=== PATIENT | male | born 1965 | race African-American/Black ===

== ENCOUNTER 2018-05-28 04:24 | Inpatient (IN) | payer OTHER ==
[2018-05-28] VITALS (7 sets, daily range): BP systolic 112–130; BP diastolic 71–85
[~2018-05-28] VITALS: Ht 190.5 cm; Wt 102.1 kg
[~2018-05-28 04:24] MED LIST: AMLODIPINE; ASPIR 8181 MG PO; BYSTOLIC 5 MG5 M1 PO; CHLORTHALIDONE25 MG PO; CLONIDINE; COZAAR 50 MG TA50 M1 PO; COZAAR 50 MG TA50 M2 PO; HYDROCHLOROTH12.5 M1 PO; LOVAZA1000 MG PO; NORCO 5-325 TA1 EACH PO; OMEPRAZOLE OR; PROAIR HFA8.5 GM INH; SINGULAIR 10 MG10 M1; WELLBUTRIN 75 M75 M1 PO; WELLBUTRIN SR150 MG PO; ZPAK PO
[2018-05-28] MEDS ORDERED: IMDUR 60 MG TAB60 M1 PO (04:38)
[2018-05-28] MEDS ORDERED: COZAAR 25 MG TA25 M1 PO (04:39)
[2018-05-28] MEDS ORDERED: ACCUNEB SO1.25 MG/1 INH (04:39)
[2018-05-28] MEDS ORDERED: CARDIZEM CD240 MG PO (04:39)
[2018-05-28] MEDS ORDERED: NITROGLYCERIN0.4 MG SUBLING (04:40)
[2018-05-28] MEDS ORDERED: PLAVIX 75 MG TA75 M1 PO (04:40)
[2018-05-28] MEDS ORDERED: CATAPRES0.2 MG PO (04:40)
[2018-05-28] MEDS ORDERED: SINGULAIR 10 MG10 M1 PO (04:41)
[2018-05-28] MEDS ORDERED: WELLBUTRIN XL150 MG PO (04:41)
[2018-05-28] MEDS ORDERED: ASPIRIN81 M2 PO (04:41)
[2018-05-28 05:14] LABS: ABSOLUTE EOSINOPHILS 0.1 thou/uL (0.0-0.7); ABSOLUTE LYMPHOCYTES 1.2 thou/uL (0.8-5.3); ABSOLUTE MONOCYTES 0.9 thou/uL (0.0-1.2); ABSOLUTE NEUTROPHILS 7.7 thou/uL (1.6-8.1); BASOPHILS 0.3 %; EOSINOPHILS 1.1 %; HEMATOCRIT 35.9 % (42.0-52.0); HEMOGLOBIN 12.3 gm/dL (14.0-18.0); LYMPHOCYTES 12.3 %; MCH 31.4 pg (26.0-34.0); MCHC 34.2 g/dL (28.0-37.0); MCV 91.9 fL (80.0-100.0); MPV 8.8 fl. (7.2-11.1); NUCLEATED RBCS 0 /100WBC; PLATELET COUNT* 177 thou/uL (150-400); POLYS 77.3 %; RBC 3.91 mil/uL (4.50-6.00); RDW-CV 13.6 % (10.5-14.5); WBC 9.9 thou/uL (4.0-11.0)
[2018-05-28 05:45] LABS: ALBUMIN 3.1 g/dL (3.4-5.0); ALKALINE PHOSPHATASE 83 U/L (46-116); ANION GAP 9 mmol/L (7-16); BUN 17 mg/dL (7-18); CALCIUM 9.1 mg/dL (8.5-10.1); CHLORIDE 101 mmol/L (98-107); CO2 25 mmol/L (21-32); CREATININE 1.5 mg/dL (0.6-1.3); GLUCOSE 130 mg/dL (70-99); NT-PRO BRAIN NAT PEPTIDE 56 pg/mL (<300); POTASSIUM 3.7 mmol/L (3.5-5.1); SGOT 16 U/L (15-37); SGPT 25 U/L (30-65); SODIUM 135 mmol/L (136-145); TOTAL BILIRUBIN 1.1 mg/dL (<0.1-1.0); TOTAL PROTEIN 7.6 g/dL (6.4-8.2); TROPONIN-I LEVEL <0.06 ng/mL (<0.06)
[2018-05-28 06:42] LABS: PROTIME 10.7 Seconds (9.20-11.50)
--- NOTE | 2018-05-28 11:38 | EKG ---
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 STEVENSON : 1965 Requested By: Mckay Cerda Order Number: [id number] MD: Ovidio Mares Measurements Intervals [place] Rate: 85 P: 37 TX: 189 QRS: -5 QRSD: 95 T: -19 QT: 354 QTc: 421 Interpretive Statements Sinus rhythm Delayed R-wave progression Borderline T abnormalities, inferior leads Baseline wander in lead(s) V2 Compared to ECG 10/29/2014 06:40:37 T-wave abnormality still present Electronically Signed On 05-28-2018 11:38:00 CDT by Ovidio Mares [email or web address] <ELECTRONICALLY SIGNED> By: Ovidio Mares MD, FACC 05/28/18 1138 [id number] Ovidio Mares MD, [facility] /EPI
[2018-05-29 04:07] LABS: HEMATOCRIT 32.1 % (42.0-52.0); HEMOGLOBIN 10.8 gm/dL (14.0-18.0); MCH 30.8 pg (26.0-34.0); MCHC 33.5 g/dL (28.0-37.0); MCV 92.1 fL (80.0-100.0); MPV 9.2 fl. (7.2-11.1); RBC 3.49 mil/uL (4.50-6.00); RDW-CV 13.4 % (10.5-14.5); WBC 7.5 thou/uL (4.0-11.0)
[2018-05-29 04:20] LABS: CALCIUM 8.4 mg/dL (8.5-10.1); CREATININE 1.3 mg/dL (0.6-1.3); MAGNESIUM 2.2 mg/dL (1.8-2.4); POTASSIUM 3.9 mmol/L (3.5-5.1)
[2018-05-29 07:45] VITALS: BP 109/66
[2018-05-29] MEDS ORDERED: LOVAZA1000 MG PO (08:07)
[2018-05-29 16:00] VITALS: BP 122/68
[2018-05-30 04:04] LABS: HEMATOCRIT 30.2 % (42.0-52.0); HEMOGLOBIN 10.2 gm/dL (14.0-18.0); MCH 31.3 pg (26.0-34.0); MCHC 33.8 g/dL (28.0-37.0); MCV 92.6 fL (80.0-100.0); MPV 8.4 fl. (7.2-11.1); RBC 3.26 mil/uL (4.50-6.00); RDW-CV 13.4 % (10.5-14.5); WBC 9.3 thou/uL (4.0-11.0)
[2018-05-30 04:11] LABS: CALCIUM 8.7 mg/dL (8.5-10.1); CREATININE 1.3 mg/dL (0.6-1.3); MAGNESIUM 2.4 mg/dL (1.8-2.4); POTASSIUM 4.2 mmol/L (3.5-5.1)
[2018-05-30 08:20] VITALS: BP 123/60
--- NOTE | 2018-05-30 11:04 | CON ---
[address] [address] CONSULTATION Name: WHATLEYISSA Barker Room: [address] IN .R.#: [id number] Admission: 05/28/18 Attend Phys: Kiran Garibay MD Discharge: Date of : 67 Report #: [id number] THIS REPORT FOR: //name// CC: Kiran Vincent DATE OF SERVICE: 05/29/2018 ATTENDING PHYSICIAN: Kiran Garibay MD REASON FOR CONSULTATION: Right lower extremity skin and soft tissue infection with cellulitis. HISTORY OF PRESENT ILLNESS: Chart reviewed, patient examined. This is a 53-year-old man with known history of vasculopathy, has some coronary artery disease, who was unaware of any particular antecedent injury. He developed right lower extremity swelling. It is notably, he has had a previous history of lower extremity deep venous thrombosis; however, this was accompanied by fevers, chills, nausea with emesis and had progressed to the point where it made him difficult to ambulate. As a result, he presented himself to the Emergency Room after evaluation including chest x-ray, which was otherwise unremarkable. Venous Doppler of the lower extremity showed no evidence of DVT. Lactic acid of 1.2, was felt to have skin and soft tissue infection with cellulitis. He was empirically placed on combination therapy with vancomycin, ceftriaxone. At this point, he has improved over course of the last 24 hours. He still has significant amount of pain and does experience initial difficulty ambulating; however, that improves. He has been afebrile over the course of his stay and vital signs are otherwise stable. He is not encephalopathic. Denies any pulmonary or gastrointestinal related complaints. ALLERGIES: CODEINE. MEDICATIONS: Include melatonin, oxycodone, tramadol, loratadine, promethazine as needed, zolpidem, clonidine, enoxaparin, diltiazem CD, montelukast, clopidogrel, bupropion, aspirin, ceftriaxone, losartan, famotidine, nitroglycerin, albuterol. PAST MEDICAL HISTORY: As described above, hypertension, history of atherosclerotic coronary artery disease, angioplasty, history of asthma, PTSD, depression, previous inguinal hernia repair. SOCIAL HISTORY: Former smoker. No ethanol, no illicit drug use. FAMILY HISTORY: Noncontributory. REVIEW OF SYSTEMS: Ten-point review of systems [place] [address] CONSULTATION Name: ISSA WHATLEY Room: [address]#: [id number] Admission: 05/28/18 Attend Phys: Kiran Garibay MD Discharge: Date of : 67 Report #: [id number] noted exception in the history of present illness. PHYSICAL EXAMINATION: GENERAL: Reveals [id number] distress at this point. He appears well nourished. VITAL SIGNS: Temperature 98.2, pulse 82, respirations 20, blood pressure 122/60. SKIN: Warm. HEENT: Normocephalic. Extraocular muscles intact. NECK: Supple. LUNGS: Clear to auscultation. HEART: Regular rate and rhythm. I do not appreciate a murmur. ABDOMEN: Soft, nontender, nondistended. There is no organomegaly. EXTREMITIES: Right lower extremity distally, he has a moderate degree of inflammation noted. He is quite tender in the distal third of the leg following ankle and the foot as well. There are no bullous lesions, no fluctuance at this point or erythrodermic type eruption. GENITOURINARY: Deferred. RECTAL: Deferred. LABORATORY DATA: Blood cultures x 2, sterile thus far. Electrolytes: Sodium 137, potassium 3.9, chloride 105, bicarbonate is 25, anion gap of 7, BUN and creatinine 14 and 1.3. CBC: White count of 7.5, H and H 10.8 and 32.1, platelets of 191. ASSESSMENT: Right lower extremity skin and soft tissue infection with cellulitis. Seemingly he has had some clinical response based on empiric therapy at this point. I will continue elevation and try to add compression in the next 24 hours. At this point, he is not systemically ill. We will await pending studies. <ELECTRONICALLY SIGNED> By: Gee Duong MD 05/30/18 1104 [id number] Duong MD /nt
[2018-05-30] MEDS ORDERED: TRAMADOL 50 MG50 MG PO (11:05)
[2018-05-30] MEDS ORDERED: OXYCODONE HCL 55 MG PO (11:05)
[2018-05-30] MEDS ORDERED: BACTRIM DS TAB1 EACH PO (11:05)
[2018-05-30 12:44] VITALS: BP 123/60
[2018-05-30 14:52] VITALS: BP 123/60
[2018-05-30] MEDS ORDERED: MINOCIN50 MG PO (14:52)
[2018-05-30 15:39] VITALS: BP 123/60
== END 2018-05-30 15:25 | disposition home or self-care (01) | DRG 603 ==
LOC: M.ERS 04:24 → M.TBA-ER 06:32 → M.3W 17:49
PROVIDERS: Emergency Medicine; Internal Medicine; ADMIT Internal Medicine
DX: L03.115 Cellulitis of right lower limb (principal); N17.9 Acute kidney failure, unspecified; I10 Essential (primary) hypertension; J45.909 Unspecified asthma, uncomplicated; F43.10 Post-traumatic stress disorder, unspecified; R73.9 Hyperglycemia, unspecified; D50.9 Iron deficiency anemia, unspecified; F32.9 Major depressive disorder, single episode, unspecified; I25.10 Atherosclerotic heart disease of native coronary artery without angina pectoris; Z88.6 Allergy status to analgesic agent; Z95.5 Presence of coronary angioplasty implant and graft; Z87.891 Personal history of nicotine dependence; Z86.718 Personal history of other venous thrombosis and embolism